=== PATIENT | male | born 1960 | race Caucasian/White ===

== ENCOUNTER 2021-03-24 07:50 | Emergency (ER) | payer MEDICARE, OTHER, SELFPAY ==
[~2021-03-24] VITALS: Ht 185.4 cm; Wt 79.4 kg
[2021-03-24] MEDS ORDERED: LORazepam 2 MG/ML, 1ML ONE (08:22)
[2021-03-24] MEDS ORDERED: LORazepam 2 MG/ML, 1ML IVPush PRN (08:30)
[2021-03-24] MEDS ORDERED: THIAMINE 100 MG in SODIUM CHLORIDE 0.9% 50 ML IVPB ONE (08:30)
[2021-03-24] MEDS ORDERED: SODIUM CHLORIDE 0.9% 1,000ML IVBOLUS ONE (08:30)
[2021-03-24] MEDS ORDERED: SODIUM CHLORIDE FLUSH 10ML SYR IVF ONE (08:30)
[2021-03-24 08:41] LABS: BASOPHILS % (AUTO) 1 % (0-1); EOSINOPHILS % (AUTO) 2 % (1-7); LYMPHOCYTES % (AUTO) 27 % (22-44); MEAN CORPUSCULAR HEMOGLOBIN 32.2 pg (27.5-34.5); MEAN CORPUSCULAR HGB CONC 34.6 g/dL (33.2-36.2); MEAN PLATELET VOLUME 7.8 fL (7.4-10.4); MONOCYTES % (AUTO) 11 % (2-9); NEUTROPHILS % (AUTO) 60 % (42-75); PLATELET COUNT 238 x10^3/uL (130-400); RED BLOOD COUNT 4.91 x10^6/uL (4.38-5.82); RED CELL DISTRIBUTION WIDTH 15.1 % (9.4-14.8)
[2021-03-24 08:51] LABS: ALBUMIN 3.8 g/dL (3.4-5.0); ANION GAP 10 mmol/L (5-15); CALCIUM 9.3 mg/dL (8.5-10.1); CHLORIDE 106 mmol/L (98-107)
[2021-03-24 08:55] LABS: ALANINE AMINOTRANSFERASE 28 U/L (12-78); ALKALINE PHOSPHATASE 42 U/L (45-117); BILIRUBIN,TOTAL 0.4 mg/dL (0.2-1.0); CREATININE 0.99 mg/dL (0.7-1.3); TOTAL PROTEIN 8.1 g/dL (6.4-8.2)
--- NOTE | 2021-03-24 09:00 | NUR ---
PT HAS CO ETOH DETOX. STATES HE IS CHRONIC DRINKER 12 PACK A DAY. WANTS TO QUIT. NO DETOX SYMPTOMS. PIV, IVF, MEDS
--- NOTE | 2021-03-24 10:21 | NUR ---
Patient given discharge instructions and they have confirmed that they understand the instructions. Patient ambulatory with steady gait.
[2021-03-24 10:22] VITALS: BP 135/95
== END 2021-03-24 10:25 | disposition home or self-care (01) ==
LOC: ED 10:20
DX: F10.129 Alcohol abuse with intoxication, unspecified (principal); Y90.0 Blood alcohol level of less than 20 mg/100 ml
CPT/HCPCS: 36415; 80053; 80320; 85025; 96374; 96375; 99284; J2060; J3411; J7030; G0480